=== PATIENT | male | born 1975 | race Caucasian/White ===

== ENCOUNTER 2024-02-20 08:06 | Emergency (ER) | payer OTHER, SELFPAY ==
[2024-02-20 08:16] VITALS: BP 140/83; PULSE 97; RESP 16; TEMP 37.1; O2SAT 100
--- NOTE | 2024-02-20 08:29 | ED.EAR ---
HPI - Ear Problem General Chief complaint: Ear Stated complaint: Left Ear Irritation Time Seen by Provider: 02/20/24 08:20 Source: patient Mode of arrival: ambulatory Limitations: no limitations History of Present Illness HPI Narrative: Ihsan is a 48-year-old male patient presenting to the clinic today with complaints of left-sided ear pain that started yesterday morning. He does note that he has had some clear discharge coming from his ear. Hearing has become somewhat decreased. Denies any fever or chills. Denies any URI symptoms. No recent swimming. Related Data Allergies Allergy/AdvReac Type Severity Reaction Status Date / Time metronidazole [From Flagyl] Allergy Severe Swelling Verified 02/20/24 08:26 of Lip/Tongue/Throat gluten AdvReac Mild Itching Verified 02/20/24 08:26 Review of Systems Review of Systems: Pertinent positives per HPI. Patient denies any fever, chills, rash, headache, visual changes, dizziness, cough, runny nose, sore throat, shortness of breath, chest pain, palpitations, nausea, vomiting, diarrhea, constipation, abdominal pain, or any urinary issues. PMFSH Comments At the time of my signature, I reviewed and agree with the nursing past medical, surgical, social, and family history. There is no relevant family history pertinent to the patient complaint. Exam Narrative: General: Well-developed, obese, in no apparent distress Head: Normocephalic, atraumatic Eyes: Pupils equally round and reactive to light bilaterally, EOM intact, sclera and conjunctive clear, no discharge, lids normal Ears: TMs intact and clear, right ear canal clear, left ear canal swollen with white otorrhea, tenderness to palpation over the tragus and pulling of the pinna, no drainage, grossly hearing normal. Nose: Nares patent, no discharge, no inflammation, no sinus tenderness. Mouth: Oropharynx without lesions or masses, good dentition, MMM. Neck: Supple, trachea midline, no enlargement of anterior or posterior cervical nodes, no thyroid masses or goiter palpable. Cardio: Regular rate and rhythm, s1 and s2 normal, no murmur appreciated. Resp: Clear to auscultation bilaterally anteriorly and posteriorly, no rhonchi, rales, wheezing or rubs Course Course Emergency Course: Portions of this record may have been created with voice recognition software. Level of Care: Express Care Visit Vital Signs Vital signs: Vital Signs Temperature 37.1 C 02/20/24 08:16 Pulse Rate 97 02/20/24 08:16 Respiratory Rate 16 02/20/24 08:16 Blood Pressure 140/83 02/20/24 08:16 Pulse Oximetry 100 02/20/24 08:16 Oxygen Delivery Room Air 02/20/24 08:16 Temperature 37.1 C 02/20/24 08:16 Pulse Rate 97 02/20/24 08:16 Respiratory Rate 16 02/20/24 08:16 Blood Pressure 140/83 02/20/24 08:16 Pulse Oximetry 100 02/20/24 08:16 Oxygen Delivery Room Air 02/20/24 08:16 Vital signs reviewed Medical Decision Making MDM Narrative Medical decision making narrative: At the time of visit patient is resting comfortably on the exam table. Patient appears to be nontoxic. Plan: I suspect patient has left otitis externa. Prescription for ofloxacin sent to the pharmacy. Supportive measures were discussed with the patient and they voiced understanding discharge instructions and agrees to treatment plan. Return precautions reviewed Differential Diagnosis Differential Diagnosis: Otitis media, otitis externa, eustachian tube dysfunction, cerumen impaction, upper respiratory infection, serous otitis Vital Signs Vital Signs: Vital Signs Temperature 37.1 C 02/20/24 08:16 Pulse Rate 97 02/20/24 08:16 Respiratory Rate 16 02/20/24 08:16 Blood Pressure 140/83 02/20/24 08:16 Pulse Oximetry 100 02/20/24 08:16 Oxygen Delivery Room Air 02/20/24 08:16 Temperature 37.1 C 02/20/24 08:16 Pulse Rate 97 02/20/24 08:16 Respiratory Rate 16 02/20/24 08:16 Blood Pressur
== END 2024-02-20 08:34 | disposition home or self-care (01) ==
PROVIDERS: Emergency Provider Nurse Practitioner Family
DX: H60.92 Unspecified otitis externa, left ear (principal)
CPT/HCPCS: 99213; G0463